=== PATIENT | male | born 1990 | race Caucasian/White ===

== ENCOUNTER 2020-03-02 08:47 | Emergency (ER) | payer MEDICAID ==
[~2020-03-02] VITALS: Ht 172.7 cm; Wt 68.2 kg
--- NOTE | 2020-03-02 08:54 | NUR ---
STATED LAST USED HEROIN AND METH 2 DAYS AGO.
[2020-03-02] MEDS ORDERED: ibuprofen tablet 400 MG TABLET PO ONE (09:20)
[2020-03-02] MEDS ORDERED: NALO4SPR NS (09:26)
[2020-03-02] MEDS ORDERED: IBUP-1984 PO (09:26)
[2020-03-02 09:27] VITALS: BP 123/75
== END 2020-03-02 09:36 | disposition home or self-care (01) ==
LOC: ER 08:47
DX: R25.2 Cramp and spasm (principal); F15.10 Other stimulant abuse, uncomplicated; F11.90 Opioid use, unspecified, uncomplicated; F17.200 Nicotine dependence, unspecified, uncomplicated; F12.90 Cannabis use, unspecified, uncomplicated; Z59.0 Homelessness; Z79.899 Other long term (current) drug therapy
CPT/HCPCS: 99283

== ENCOUNTER 2020-03-06 09:12 | Emergency (ER) | payer MEDICAID ==
[~2020-03-06] VITALS: Ht 172.7 cm; Wt 71.8 kg
[~2020-03-06 09:12] MED LIST: IBUP-1984 PO; NALO4SPR NS
[2020-03-06 09:26] VITALS: BP 128/81
== END 2020-03-06 09:58 | disposition home or self-care (01) ==
LOC: ER 09:12
DX: F11.90 Opioid use, unspecified, uncomplicated (principal); F17.200 Nicotine dependence, unspecified, uncomplicated; F12.90 Cannabis use, unspecified, uncomplicated; F15.90 Other stimulant use, unspecified, uncomplicated; Z98.890 Other specified postprocedural states
CPT/HCPCS: 99281

== ENCOUNTER 2020-04-16 09:43 | Emergency (ER) | payer MEDICAID ==
[~2020-04-16] VITALS: Ht 172.7 cm; Wt 68.2 kg
[~2020-04-16 09:43] MED LIST changes: -IBUP-1984 PO
[2020-04-16] MEDS ORDERED: normal saline 1000ml 1,000 ML IV ONE (09:50)
[2020-04-16 10:03] LABS: BASOPHILS % (AUTO) 0.3 % (0-1); EOSINOPHILS # (AUTO) 0.1 X10'3 (0-0.9); EOSINOPHILS % (AUTO) 0.7 % (0-6); HEMATOCRIT 40.5 % (42.0-52.0); HEMOGLOBIN 13.8 g/dl (14.0-17.9); LYMPHOCYTES # (AUTO) 0.9 X10'3 (1.1-4.8); LYMPHOCYTES % (AUTO) 10.3 % (21-51); MEAN CORPUSCULAR HEMOGLOBIN 30.2 PG (27.0-31.0); MEAN CORPUSCULAR VOLUME 88.8 FL (78-98); MEAN PLATELET VOLUME 6.5 FL (7.4-10.4); MONOCYTES # (AUTO) 0.6 X10'3 (0-0.9); MONOCYTES % (AUTO) 7.1 % (2-12); NEUTROPHILS # (AUTO) 7.1 X10'3 (1.8-7.7); NEUTROPHILS % (AUTO) 81.6 % (42-75); PLATELET COUNT 318 X10'3 (140-440); RED BLOOD COUNT 4.56 X10'6 (4.70-6.10); RED CELL DISTRIBUTION WIDTH 14.3 % (11.5-14.5); WHITE BLOOD COUNT 8.7 X10'3 (4.5-11.0)
[2020-04-16 10:25] LABS: ALANINE AMINOTRANSFERASE 61 U/L (12-78); ALBUMIN 3.7 G/DL (3.4-5.0); ALBUMIN/GLOBULIN RATIO 0.9 (1.1-1.5); ALKALINE PHOSPHATASE 66 IU/L (46-116); ANION GAP 11 (8-16); ASPARTATE AMINO TRANSFERASE 71 U/L (10-37); BILIRUBIN,TOTAL 0.4 MG/DL (0.1-1.0); BLOOD UREA NITROGEN 14 MG/DL (7-18); BUN/CREATININE RATIO 10.4 (5.4-32.0); CALCIUM 8.9 MG/DL (8.5-10.1); CHLORIDE 103 MMOL/L (99-107); CREATININE 1.35 MG/DL (0.60-1.10); ETHANOL < 0.010 GM/DL (0.0-0.010); GLUCOSE 89 MG/DL (70-104); SODIUM 140 MMOL/L (135-145); TOTAL CARBON DIOXIDE 25.9 MMOL/L (24-32); TOTAL PROTEIN 7.7 G/DL (6.4-8.2); eGFR 63 ML/MIN
[2020-04-16 10:26] LABS: POTASSIUM 4.1 MMOL/L (3.5-5.1)
--- NOTE | 2020-04-16 11:42 | NUR ---
PT LAYING SUPINE, RESPIRATIONS EVEN AND UNLABORED
--- NOTE | 2020-04-16 11:47 | NUR ---
UNABLE TO GET PT PASST MEDICA HISOTRY DUE TO PT CONDITION.
[2020-04-16 14:01] LABS: URINE AMPHETAMINE SCREEN POSITIVE (Neg); URINE BARBITUATE SCREEN NEGATIVE (Neg); URINE BENZODIAZEPINES SCREEN NEGATIVE (Neg); URINE CANNABINOID SCREEN NEGATIVE (Neg); URINE COCAINE SCREEN NEGATIVE (Neg); URINE METHADONE SCREEN NEGATIVE (Neg); URINE OPIATE SCREEN POSITIVE (Neg); URINE PHENCYCLIDINE SCREEN NEGATIVE (Neg)
--- NOTE | 2020-04-16 14:57 | NUR ---
Nursing Note: Pt transferred to ED overflow bed # 24. Pt ambulatory. Pt cooperative. He has a PIV in his R forearm. He requested water, juice, and food. Pt given apple sauce, orange juice, and a sandwich. Pt reports that he is hearing voices. Will continue to monitor.
[2020-04-16] MEDS ORDERED: nicotine 21mg patch - 24 hr TD ONE (15:35)
[2020-04-16] MEDS: ibuprofen tablet 400 MG TABLET PO PRN (15:38)
--- NOTE | 2020-04-16 15:39 | NUR ---
nicotine patch applied and given ibu for pain in feet
--- NOTE | 2020-04-16 16:14 | NUR ---
Nursing Note: Pt sitting up on the end his bed. No S&S of distress, RR even and unlabored, will continue to monitor.
--- NOTE | 2020-04-16 16:37 | NUR ---
Nursing Note: Pt reports he had been on Suboxone, but he missed his last appointment. He is unable to state the dosage of the Suboxone or the last date he took it. He said he used heroin instead. Pt is unable to fully answer questions. Will continue to monitor.
--- NOTE | 2020-04-16 17:51 | NUR ---
packet faxed to [facility]
--- NOTE | 2020-04-16 17:55 | NUR ---
Nursing Note: sales technician unable to obtain patient's temperature because he would not keep his mouth closed. No S&S of distress. Pt now laying on his back with his eyes closed, RR even and unlabored, will continue to monitor.
--- NOTE | 2020-04-16 18:30 | NUR ---
ASSSUMED CARE OF PATINE LYING ON HER LEFT SIDE IN BED ASLEEP . RESP EVEN AND UN LABORED . PT IS IN THE DIRECT LINE OF SIGHT OF NURSING STAFF AND WILL CONTINUED TO BE MONITORED AND ASSESSED
--- NOTE | 2020-04-16 18:46 | NUR ---
PLACED PT ON O2 SAT MONITOR AND BP TO ASSESS HEART RATE AND O2 SATS WHEN PATIENT SLEEP A PRECATIONARY , DAY SHIFT RN REPORTS THAT PATIENT DID HAVE A DECREASE INRESP TI 14 O2 SATS REMAINED ABOVE 95 % , HOWVER PT IS UNABLE TO REPORT HOW MUCH HERION HE USED EARLIER TODAY .
--- NOTE | 2020-04-16 18:52 | NUR ---
Note kang in EDM - 04/16/20 at 2341 by ANA [facility] AT BEDSIDE AWKEING PATIENT FOR EVALUATION . JANES PATEL AWOKE HER AND OUT THE HEAD OF BED UPRIGHT TO HAVE DINNER AND ALLOW YEVGENIY TO TALK WITH PATIENT . PT WAS COROPORATIVE IN CURRENT PLAN OF CARE
--- NOTE | 2020-04-16 19:00 | NUR ---
ASSESSED PATIENTS EXTERNAL MED HX FOR MED REC. PT HAS NO REPORTED EXTERNAL MED HX . ASKED PATIENT IF HE TAKES ANY ROUTINE MEDICATIONS. PT REPORTS HE HAS TAKEN SUBOXONE " I THINK 8MG THREE TIMES A DAY " THEN REPLIES " I DONT KNOW I CAN'T REMEMBER " MED REC COMPLETED WITH ONLY NARCAN REPORTED PATIENT IS UNCLEAR OF SUBOXONE DOSEAGE, WHENHE LAST TOOK IT , AND WHERE/ WHO PRESCRIBED HIM THE MEDICATION .
--- NOTE | 2020-04-16 19:30 | NUR ---
PT COMPLETED 65% OF HIS DINNER . PT REPORTED THAT HE WOULD LIKE TO GO BACK TO SLEEP . HOB ELEVATED AT 30 DEGREES AND O2 SAT MONITOR PLACED ON PT TO MONITOR HIS HEART RATE AND O2 SATS
--- NOTE | 2020-04-16 19:30 | NUR ---
ATTEMPTED TO REVIEW PATIENTS PAST MEDICAL HISTORY AND PATIENT ALSO WASUNABLE TO RECALL ANY PAST MEDICATION HX . PT STATES " I CANT REMEMBER" WILL REATTEMPT TO ASSESS WHEN PATIENT IS NOT SO DROWSEY.
--- NOTE | 2020-04-16 20:30 | NUR ---
PT SLEEPING ON HIS RIGHT SIDE, RESP EVEN AND UNLABORED O2 SATS AT 98 % ROOM AIR . WILL CONTINUE TO MONITOR AND REASSESS NEEDED
--- NOTE | 2020-04-16 21:30 | NUR ---
NO CHANGES TO PREVIOUS ASSESSMENT . PT SLEEPING PEACFULLY ON HIS RIGHT SIDE RESP EVEN AND UNLABORED WILL CONTINUE TO MONITOR AND REASSESS
--- NOTE | 2020-04-16 22:30 | NUR ---
PT SLEEPING ON HIS RIGHT SIDE . RESP EVEN AND UNLABORED O2 SATS AT 98 % ROOM AIR HEART RATE AT 64 AT THIS TIME . WILL CONTINUE TO MONITOR AND REASSESS NEEDED
--- NOTE | 2020-04-16 23:30 | NUR ---
NO CHANGES TO PREVIOUS ASSESSMENT . PT SLEEPING PEACFULLY O2 SATS AT 98 % hr at 67 AT THIS TIME
--- NOTE | 2020-04-17 01:30 | NUR ---
PT SLEEPING PEACFULLY SUPINE IN BED . RESP EVEN AND UNLABORED WILL CONTINUE TO MONITOR AND REASSESS NEEDED .
--- NOTE | 2020-04-17 02:03 | NUR ---
PT SLEEPING SUPINE IN BED . RESP EVEN AND UNLABORD .PT ON O2 SAT MONITOR SATS AT 98 % ROOM AIR RESP AT 16 HR AT 62 WILL CONTINUE TO MONITOR AND REASSESS NEEDED .
--- NOTE | 2020-04-17 03:27 | NUR ---
PT SLEEPING SUPINE IN BED . RESP EVEN AND UNLABORD .WILL CONTINUE TO MONITOR AND REASSESS NEEDED .
--- NOTE | 2020-04-17 03:43 | NUR ---
MED REC COMPLETED AND FAXED TO PHARMACY
[2020-04-17] MEDS ORDERED: NALO4SPR NS (03:57)
--- NOTE | 2020-04-17 04:00 | NUR ---
PT SLEEPING SUPINE IN BED . RESP EVEN AND UNLABORD .PT ON O2 SAT MONITOR SATS AT 98 % ROOM AIR RESP AT 16 HR AT 61 WILL CONTINUE TO MONITOR AND REASSESS NEEDED
--- NOTE | 2020-04-17 04:28 | NUR ---
PT TURNED TO HIS RIGHT SIDE .SELF REPOSITIONED
--- NOTE | 2020-04-17 05:10 | NUR ---
PT SLEEPING SUPINE IN BED . RESP EVEN AND UNLABORD .PT ON O2 SAT MONITOR SATS AT 98% ROOM AIR HR AT 68 RESP RATE AT 16 WILL CONTINUE TO MONITOR AND REASSESS NEEDED .
--- NOTE | 2020-04-17 05:57 | NUR ---
PT SLEEPING ON HIS RIGHT SIDE IN BED . RESP EVEN AND UNLABORD .PT ON O2 SAT MONITOR SATS AT 98% ROOM AIR HR AT 68 RESP RATE AT 16 WILL CONTINUE TO MONITOR AND REASSESS NEEDED .
--- NOTE | 2020-04-17 07:30 | NUR ---
RN awoke pt. for urine sample for U/A. Pt. complied and urine sent to lab. Pt. went back to sleep.
[2020-04-17 07:43] LABS: CLARITY,URINE CLOUDY (Clear); COLOR,URINE YELLOW (Yellow); GLUCOSE, URINE NEGATIVE (Neg); KETONES,URINE NEGATIVE (Neg); LEUKOCYTE ESTERASE ,URINE MODERATE (Neg); NITRITES, URINE NEGATIVE (Neg); OCCULT BLOOD,URINE TRACE-INTACT (Neg); PROTEIN,URINE TRACE mg/dl (Neg); UROBILINOGEN,URINE 0.2 E.U/dL (0.2-1.0)
[2020-04-17 07:46] LABS: UA COLLECTION TYPE CLN CATCH MIDSTREAM
[2020-04-17 07:50] LABS: BACTERIA,URINE FEW /HPF (Neg); RBC,URINE 0-2 /HPF (0-2); SQUAMOUS EPITHELIAL CELL,UR NONE SEEN /LPF (FEW); WBC,URINE 50-100 /HPF (0-4)
[2020-04-17] MEDS: ibuprofen tablet 400 MG TABLET PO PRN ×2 (08:49→13:31)
--- NOTE | 2020-04-17 09:36 | NUR ---
Pt was seen/assessed by [facility] iqra Hays and placed on 5150.
[2020-04-17] MEDS ORDERED: ciprofloxacin 250mg tablet PO ONE (10:00)
--- NOTE | 2020-04-17 10:00 | NUR ---
Pt. c/o generalized body ache 10/10 so much so that he hurts to much to walk to the bathroom. Pt. given a urinal. RN received additional PRN pain medication Tylenol 650mg.
[2020-04-17] MEDS ORDERED: acetaminophen 325mg tablet PO PRN (10:05)
--- NOTE | 2020-04-17 10:30 | NUR ---
Pt. c/o of pain on urination. pt.'s U/A + for leukocyte esterase and moderate WBCs. Provider notified, Cipro 250mg ordered and pt. received medication.
--- NOTE | 2020-04-17 12:00 | NUR ---
Pt. asleep in bed laying on right side. R&R of respirations are normal. Pt. in no apparent distress.
--- NOTE | 2020-04-17 12:18 | NUR ---
RN spoke with Lucita from [facility] to discuss if pt. is a good fit for them. RN informed that pt. would be discussed with admitting doctor at [facility].
--- NOTE | 2020-04-17 13:48 | NUR ---
RN received phone call from Amarilys at [facility] and informed that Pt. accepted to [facility] by Dr. Jaquez and will coordinate [facility] pickup of pt. for 14:30.
--- NOTE | 2020-04-17 14:19 | NUR ---
Pt. asleep in bed laying on right side. Normal R&R of respirations noted. Pt. in no apparent distress.
--- NOTE | 2020-04-17 15:00 | NUR ---
Pt. transfered to [facility]. Pt. picked up by [facility] medical van driver. Pt. left with all belongings. Pt. escorted to transport vehicle with security operations center analyst. Pt. is alert & oriented x3, but not to time. Pt. denies SI/HI, A/V hallucinations, but believes there are aligators attacking his feet. Pt. ambulated off of unit.
[2020-04-17 15:04] VITALS: BP 92/56
[2020-04-17] MEDS ORDERED: ciprofloxacin 250mg tablet PO SCH (20:00)
[2020-04-17] MEDS ORDERED: lactobacillus rhamnosus 10,000 MMU CELLS/CAPSULE PO SCH (20:00)
== END 2020-04-17 15:00 ==
LOC: ER 09:43
DX: F29 Unspecified psychosis not due to a substance or known physiological condition (principal); F12.90 Cannabis use, unspecified, uncomplicated; F15.90 Other stimulant use, unspecified, uncomplicated; F11.90 Opioid use, unspecified, uncomplicated
CPT/HCPCS: 36415; 80053; 80305; 80320; 81001; 84443; 85025; 99285; J7030; 99284

== ENCOUNTER 2020-08-26 12:06 | Emergency (ER) | payer MEDICAID ==
[~2020-08-26] VITALS: Ht 172.7 cm; Wt 60.0 kg
--- NOTE | 2020-08-26 12:33 | NUR ---
[employer] officer at bedside talking with pt. Addendum: 08/26/20 at 1238 by JARRET Officer Kirit has drugs removed from patient rectum.
[2020-08-26] MEDS ORDERED: normal saline 1000ML IV soln IVB ONE (12:40)
[2020-08-26 13:17] LABS: BASOPHILS # (AUTO) 0.1 X10'3 (0-0.2); BASOPHILS % (AUTO) 0.6 % (0-1); EOSINOPHILS # (AUTO) 0.1 X10'3 (0-0.9); EOSINOPHILS % (AUTO) 0.8 % (0-6); HEMATOCRIT 39.4 % (42.0-52.0); HEMOGLOBIN 13.2 g/dl (14.0-17.9); LYMPHOCYTES # (AUTO) 1.7 X10'3 (1.1-4.8); LYMPHOCYTES % (AUTO) 13.1 % (21-51); MEAN CORPUSCULAR HGB CONC 33.5 g/dL (33.0-36.5); MEAN CORPUSCULAR VOLUME 86.6 FL (78-98); MEAN PLATELET VOLUME 6.7 FL (7.4-10.4); MONOCYTES # (AUTO) 1.5 X10'3 (0-0.9); MONOCYTES % (AUTO) 11.9 % (2-12); NEUTROPHILS # (AUTO) 9.6 X10'3 (1.8-7.7); NEUTROPHILS % (AUTO) 73.6 % (42-75); PLATELET COUNT 257 X10'3 (140-440); RED BLOOD COUNT 4.54 X10'6 (4.70-6.10); RED CELL DISTRIBUTION WIDTH 13.1 % (11.5-14.5)
[2020-08-26 13:27] LABS: ALANINE AMINOTRANSFERASE 102 U/L (12-78); ALBUMIN 4.2 G/DL (3.4-5.0); ALBUMIN/GLOBULIN RATIO 1.1 (1.1-1.5); ALKALINE PHOSPHATASE 58 IU/L (46-116); ANION GAP 9 (8-16); ASPARTATE AMINO TRANSFERASE 79 U/L (10-37); BILIRUBIN,TOTAL 0.6 MG/DL (0.1-1.0); BLOOD UREA NITROGEN 23 MG/DL (7-18); BUN/CREATININE RATIO 27.4 (5.4-32.0); CALCIUM 9.2 MG/DL (8.5-10.1); CHLORIDE 104 MMOL/L (99-107); CREATININE 0.84 MG/DL (0.60-1.10); GLUCOSE 91 MG/DL (70-104); POTASSIUM 3.6 MMOL/L (3.5-5.1); SODIUM 141 MMOL/L (135-145); TOTAL CARBON DIOXIDE 28.2 MMOL/L (24-32); TOTAL PROTEIN 8.1 G/DL (6.4-8.2); eGFR > 90 ML/MIN
[2020-08-26 13:28] LABS: ETHANOL < 0.010 GM/DL (0.0-0.010)
--- NOTE | 2020-08-26 14:40 | NUR ---
Pt eating sandwhich and drinking juice in [facility]; VSS.
[2020-08-26] MEDS ORDERED: NO HOME MEDS (17:57)
[2020-08-26] MEDS ORDERED: nicotine 14mg patch - 24hr TD ONE (18:35)
[2020-08-26] MEDS ORDERED: VENL150C2 PO ×2 (19:04→19:12)
[2020-08-26] MEDS ORDERED: GABA-530 PO ×2 (19:04→19:12)
[2020-08-26] MEDS ORDERED: CLON0.1T PO (19:04)
[2020-08-26] MEDS ORDERED: MIRT-116 PO ×2 (19:04→19:12)
[2020-08-26] MEDS ORDERED: OLAN2.5T3 PO ×2 (19:04→19:12)
[2020-08-26] MEDS ORDERED: HYDR50TA65 PO ×2 (19:05→19:12)
[2020-08-26] MEDS ORDERED: SERT100T PO (19:12)
[2020-08-26] MEDS ORDERED: VENL25TA48 PO (19:12)
[2020-08-26] MEDS ORDERED: ALPR1TAB2 PO (19:12)
[2020-08-26 19:42] LABS: CLARITY,URINE CLEAR (Clear); COLOR,URINE YELLOW (Yellow); GLUCOSE, URINE NEGATIVE (Neg); KETONES,URINE 15 mg/dl (Neg); LEUKOCYTE ESTERASE ,URINE NEGATIVE (Neg); NITRITES, URINE NEGATIVE (Neg); OCCULT BLOOD,URINE NEGATIVE (Neg); PROTEIN,URINE NEGATIVE (Neg); UROBILINOGEN,URINE 0.2 E.U/dL (0.2-1.0)
[2020-08-26 19:46] LABS: UA COLLECTION TYPE CLN CATCH MIDSTREAM
--- NOTE | 2020-08-26 20:00 | NUR ---
MD AWARE OF PT STATING WHAT MEDS HE TAKES AT HOME AND POLYPHARMACY. NO NEW ORDERS TO CONTINUE STATED MED REC
--- NOTE | 2020-08-26 20:50 | NUR ---
pt provided turkey sandwich and juice
--- NOTE | 2020-08-26 22:31 | NUR ---
EYES CLOSED RESPIRATIONS EVEN IN BED
[2020-08-26 22:50] LABS: URINE AMPHETAMINE SCREEN POSITIVE (Neg); URINE BARBITUATE SCREEN NEGATIVE (Neg); URINE BENZODIAZEPINES SCREEN NEGATIVE (Neg); URINE CANNABINOID SCREEN POSITIVE (Neg); URINE COCAINE SCREEN NEGATIVE (Neg); URINE METHADONE SCREEN NEGATIVE (Neg); URINE OPIATE SCREEN POSITIVE (Neg); URINE PHENCYCLIDINE SCREEN NEGATIVE (Neg)
--- NOTE | 2020-08-27 01:53 | NUR ---
PT SLEEPING. NO DISTRESS NOTED. WILL CONTINUE TO MONITOR.
--- NOTE | 2020-08-27 03:55 | NUR ---
PT SLEEPING. NO DISTRESS NOTED. WILL CONTINUE TO MONITOR.
--- NOTE | 2020-08-27 10:01 | NUR ---
Per EDILMA Renee, pt to be released from hold following his psychosocial assessment.
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
--- NOTE | 2020-08-27 15:20 | NUR ---
Discussed pt's status w/ ED [facility] [place]. Pt was initially up for dc, but that is being held at this time due to change in pt thought processes. New order for Xanaax, Gabapentin, Zoloft and nicotine patch received.
[2020-08-27] MEDS ORDERED: gabapentin 100mg capsule PO ONE (15:30)
[2020-08-27] MEDS ORDERED: sertraline 50mg tablet PO ONE (15:30)
[2020-08-27] MEDS ORDERED: ALPRAZolam 0.5mg tablet PO ONE (15:30)
[2020-08-27] MEDS ORDERED: nicotine 14mg patch - 24hr TD ONE (15:30)
[2020-08-27 17:29] VITALS: BP 115/56
== END 2020-08-27 17:42 | disposition home or self-care (01) ==
LOC: ER 12:06
DX: T40.412A Poisoning by fentanyl or fentanyl analogs, intentional self-harm, initial encounter (principal); R45.851 Suicidal ideations; F10.10 Alcohol abuse, uncomplicated; F12.90 Cannabis use, unspecified, uncomplicated; F15.90 Other stimulant use, unspecified, uncomplicated; F11.90 Opioid use, unspecified, uncomplicated; F19.90 Other psychoactive substance use, unspecified, uncomplicated; Z79.899 Other long term (current) drug therapy; Y92.89 Other specified places as the place of occurrence of the external cause; Y90.0 Blood alcohol level of less than 20 mg/100 ml
CPT/HCPCS: 36415; 71045; 80053; 80305; 80320; 81003; 82948; 85025; 93005; 96360; 99285; J7030

== ENCOUNTER 2020-11-11 22:10 | Emergency (ER) | payer MEDICAID ==
[~2020-11-11] VITALS: Ht 172.7 cm; Wt 68.2 kg
[~2020-11-11 22:10] MED LIST changes: +ALPR1TAB2 PO; +GABA-530 PO; +HYDR50TA65 PO; +MIRT-116 PO; -NALO4SPR NS; +OLAN2.5T3 PO; +SERT100T PO; +VENL150C2 PO; +VENL25TA48 PO
[2020-11-11 23:15] VITALS: BP 130/69
[2020-11-11 23:38] LABS: CLARITY,URINE CLEAR (Clear); COLOR,URINE YELLOW (Yellow); GLUCOSE, URINE NEGATIVE (Neg); KETONES,URINE NEGATIVE (Neg); LEUKOCYTE ESTERASE ,URINE NEGATIVE (Neg); NITRITES, URINE NEGATIVE (Neg); OCCULT BLOOD,URINE NEGATIVE (Neg); PH,URINE 5.5 (4.8-8.0); PROTEIN,URINE NEGATIVE (Neg); UROBILINOGEN,URINE 0.2 E.U/dL (0.2-1.0)
[2020-11-11 23:40] LABS: UA COLLECTION TYPE VOIDED
[2020-11-11 23:53] LABS: URINE AMPHETAMINE SCREEN POSITIVE (Neg); URINE BARBITUATE SCREEN NEGATIVE (Neg); URINE BENZODIAZEPINES SCREEN NEGATIVE (Neg); URINE CANNABINOID SCREEN NEGATIVE (Neg); URINE COCAINE SCREEN NEGATIVE (Neg); URINE METHADONE SCREEN NEGATIVE (Neg); URINE OPIATE SCREEN POSITIVE (Neg); URINE PHENCYCLIDINE SCREEN NEGATIVE (Neg)
== END 2020-11-12 00:55 | disposition home or self-care (01) ==
LOC: ER 22:10
DX: T40.1X1A Poisoning by heroin, accidental (unintentional), initial encounter (principal); F19.10 Other psychoactive substance abuse, uncomplicated; F12.90 Cannabis use, unspecified, uncomplicated; F15.90 Other stimulant use, unspecified, uncomplicated; F11.90 Opioid use, unspecified, uncomplicated; Z72.89 Other problems related to lifestyle; Z79.899 Other long term (current) drug therapy; Y92.89 Other specified places as the place of occurrence of the external cause
CPT/HCPCS: 36415; 80305; 80320; 81003; 93005; 99284

== ENCOUNTER 2021-01-23 17:07 | Emergency (ER) | payer MEDICAID ==
[~2021-01-23] VITALS: Ht 172.7 cm; Wt 71.8 kg
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
[2021-01-23] MEDS ORDERED: LIDOcaine 1% W/epiNEPHrine 1:100,000 20ml vial SQ ONE ×2 (17:55→19:00)
[2021-01-23] MEDS ORDERED: morphine 4 MG/ML inj SYRINge IV ONE (18:20)
[2021-01-23] MEDS ORDERED: ondansetron/PF 4mg/2ml inj IV ONE (18:20)
--- NOTE | 2021-01-23 18:35 | NUR ---
UNABLE TO COLLECT BP, PT STATES HE'S ARMS ARE IN TOO MUCH PAIN.
[2021-01-23] MEDS ORDERED: TETanus/Pertussis (Acell)/Diphther VAC/PF (Tdap-Adult) 0.5ml syringe IMVAC ONE (18:50)
--- NOTE | 2021-01-23 18:52 | NUR ---
covid swab sent to lab
--- NOTE | 2021-01-23 19:22 | NUR ---
report called to Lisset ROWLAND at [facility] for transfer.
[2021-01-23 20:33] VITALS: BP 100/49
[2021-01-24] MEDS ORDERED: ceFAZolin/D5W- 1GM premix 50 ML IV ONE
== END 2021-01-23 19:30 | disposition short-term general hospital (02) ==
LOC: ER 17:07
DX: S42.411A Displaced simple supracondylar fracture without intercondylar fracture of right humerus, initial encounter for closed fracture (principal); Z20.822 Contact with and (suspected) exposure to COVID-19; S81.811A Laceration without foreign body, right lower leg, initial encounter; S51.012A Laceration without foreign body of left elbow, initial encounter; F12.90 Cannabis use, unspecified, uncomplicated; F15.90 Other stimulant use, unspecified, uncomplicated; F11.90 Opioid use, unspecified, uncomplicated; Z79.899 Other long term (current) drug therapy; W54.0XXA Bitten by dog, initial encounter; Y93.89 Activity, other specified; Y92.89 Other specified places as the place of occurrence of the external cause; Y99.8 Other external cause status
CPT/HCPCS: 12004; 73080; 73090; 73590; 87635; 90471; 90715; 96365; 96375; 99285; C9803; J0690; J2270; J2405; 99284

== ENCOUNTER 2021-02-17 09:00 | Emergency (ER) | payer MEDICAID ==
[~2021-02-17] VITALS: Ht 172.7 cm; Wt 71.8 kg
[2021-02-17] MEDS ORDERED: CefTRIAXone 2gm/D5W 50ml BAG 50 ML IV ONE (09:15)
[2021-02-17] MEDS ORDERED: normal saline 1000ML IV soln IV ONE (09:15)
[2021-02-17] MEDS ORDERED: vancomycin/NS 1 GM ADD-VANTAGE 250 ML IV ONE (09:15)
[2021-02-17 10:14] LABS: BASOPHILS # (AUTO) 0.1 X10'3 (0-0.2); BASOPHILS % (AUTO) 0.7 % (0-1); EOSINOPHILS # (AUTO) 0.2 X10'3 (0-0.9); EOSINOPHILS % (AUTO) 2.9 % (0-6); HEMATOCRIT 34.3 % (42.0-52.0); HEMOGLOBIN 11.2 g/dl (14.0-17.9); LYMPHOCYTES # (AUTO) 1.7 X10'3 (1.1-4.8); LYMPHOCYTES % (AUTO) 21.5 % (21-51); MEAN CORPUSCULAR HEMOGLOBIN 26.7 PG (27.0-31.0); MEAN CORPUSCULAR HGB CONC 32.5 g/dL (33.0-36.5); MEAN CORPUSCULAR VOLUME 82.1 FL (78-98); MEAN PLATELET VOLUME 6.4 FL (7.4-10.4); MONOCYTES # (AUTO) 0.8 X10'3 (0-0.9); MONOCYTES % (AUTO) 10.4 % (2-12); NEUTROPHILS # (AUTO) 5.1 X10'3 (1.8-7.7); NEUTROPHILS % (AUTO) 64.5 % (42-75); PLATELET COUNT 517 X10'3 (140-440); RED BLOOD COUNT 4.18 X10'6 (4.70-6.10); RED CELL DISTRIBUTION WIDTH 14.5 % (11.5-14.5); WHITE BLOOD COUNT 7.9 X10'3 (4.5-11.0)
[2021-02-17] MEDS ORDERED: iohexol 300mg/ml 100ml inj. ONE (10:41)
[2021-02-17 10:48] LABS: ALANINE AMINOTRANSFERASE 44 U/L (12-78); ALBUMIN 2.6 G/DL (3.4-5.0); ALBUMIN/GLOBULIN RATIO 0.5 (1.1-1.5); ALKALINE PHOSPHATASE 103 IU/L (46-116); ANION GAP 6 (8-16); ASPARTATE AMINO TRANSFERASE 32 U/L (10-37); BILIRUBIN,TOTAL 0.2 MG/DL (0.1-1.0); BLOOD UREA NITROGEN 9 MG/DL (7-18); BUN/CREATININE RATIO 12.2 (5.4-32.0); CALCIUM 8.3 MG/DL (8.5-10.1); CHLORIDE 104 MMOL/L (99-107); CREATININE 0.74 MG/DL (0.60-1.10); GLUCOSE 87 MG/DL (70-104); MAGNESIUM 2.1 MG/DL (1.5-2.4); POTASSIUM 3.9 MMOL/L (3.5-5.1); SODIUM 137 MMOL/L (135-145); TOTAL CARBON DIOXIDE 27.4 MMOL/L (24-32); TOTAL PROTEIN 8.2 G/DL (6.4-8.2); eGFR > 90 ML/MIN
[2021-02-17 10:54] LABS: ETHANOL < 0.010 GM/DL (0.0-0.010)
[2021-02-17 11:39] LABS: CLARITY,URINE CLEAR (Clear); COLOR,URINE YELLOW (Yellow); GLUCOSE, URINE NEGATIVE (Neg); KETONES,URINE NEGATIVE (Neg); LEUKOCYTE ESTERASE ,URINE NEGATIVE (Neg); NITRITES, URINE NEGATIVE (Neg); OCCULT BLOOD,URINE TRACE-INTACT (Neg); PROTEIN,URINE NEGATIVE (Neg); UA COLLECTION TYPE NON-SPECIFIED
[2021-02-17 11:46] LABS: AMORPHOUS URATES 1+; BACTERIA,URINE NONE SEEN /HPF (Neg); CAL OXALATE CRYSTALS 1+ /HPF (NEGATIVE); MUCUS STRANDS MODERATE /LPF (Neg); RBC,URINE 0-2 /HPF (0-2); SQUAMOUS EPITHELIAL CELL,UR NONE SEEN /LPF (FEW); WBC,URINE 0-4 /HPF (0-4)
[2021-02-17 11:47] LABS: URINE AMPHETAMINE SCREEN POSITIVE (Neg); URINE BARBITUATE SCREEN NEGATIVE (Neg); URINE BENZODIAZEPINES SCREEN NEGATIVE (Neg); URINE CANNABINOID SCREEN NEGATIVE (Neg); URINE COCAINE SCREEN NEGATIVE (Neg); URINE METHADONE SCREEN NEGATIVE (Neg); URINE OPIATE SCREEN POSITIVE (Neg); URINE PHENCYCLIDINE SCREEN NEGATIVE (Neg)
[2021-02-17 12:21] LABS: C-REACTIVE PROTEIN 3.12 MG/DL (0.0-0.5)
[2021-02-17] MEDS ORDERED: ketorolac trometh. 30mg/ml inj. IV ONE (15:15)
[2021-02-17 18:56] VITALS: BP 168/74
== END 2021-02-17 20:45 | disposition short-term general hospital (02) ==
LOC: ER 09:00
DX: L03.113 Cellulitis of right upper limb (principal); F15.10 Other stimulant abuse, uncomplicated; F12.10 Cannabis abuse, uncomplicated; F14.10 Cocaine abuse, uncomplicated; Z56.0 Unemployment, unspecified; Z79.899 Other long term (current) drug therapy; Z20.822 Contact with and (suspected) exposure to COVID-19
CPT/HCPCS: 36415; 71045; 73201; 80053; 80305; 80320; 81001; 83605; 83735; 84145; 85025; 85651; 86140; 87040; 87070; 87077; 87186; 87635; 93005; 96365; 96367; 96375; 99285; C9803; J0696; J1885; J3370; J7030; Q9967

== ENCOUNTER 2021-02-27 10:23 | Emergency (ER) | payer MEDICAID ==
[~2021-02-27] VITALS: Ht 172.7 cm; Wt 71.8 kg
[2021-02-27] MEDS ORDERED: linezolid 600mg tablet PO ONE (10:25)
[2021-02-27 10:26] VITALS: BP 113/88
[2021-02-27] MEDS ORDERED: LINE600T11 PO (10:29)
== END 2021-02-27 11:13 | disposition home or self-care (01) ==
LOC: ER 10:24
DX: S42.411D Displaced simple supracondylar fracture without intercondylar fracture of right humerus, subsequent encounter for fracture with routine healing (principal); F12.90 Cannabis use, unspecified, uncomplicated; F15.90 Other stimulant use, unspecified, uncomplicated; F11.90 Opioid use, unspecified, uncomplicated; F19.90 Other psychoactive substance use, unspecified, uncomplicated; Z72.89 Other problems related to lifestyle; Z79.899 Other long term (current) drug therapy; X58.XXXD Exposure to other specified factors, subsequent encounter
CPT/HCPCS: 99283

== ENCOUNTER 2021-04-04 12:43 | Inpatient (IN) | payer OTHER ==
[2021-04-04] VITALS (17 sets, daily range): BP systolic 94–159; BP diastolic 54–99
[~2021-04-04] VITALS: Ht 172.7 cm; Wt 73.5 kg
[~2021-04-04 12:43] MED LIST changes: +cefazolin/dext.iso 2gm/100ml IV ONE; +famotidine 20mg tablet PO ONE; +ringers solution, lacted 1,000 ML IV SCH; +vancomycin 1,500 MG in NS 300ml IV soln IV ONE
[2021-04-04] MEDS ORDERED: gabapentin 300mg capsule PO PRN (14:25)
[2021-04-04] MEDS ORDERED: vancomycin 1,000mg inj ONE (17:59)
[2021-04-04] MEDS ORDERED: tobramycin sulfate 1.2gm vial TP ONE (18:01)
[2021-04-04] MEDS ORDERED: sevoflurane 250ml liquid IH ONE (19:18)
[2021-04-04] MEDS ORDERED: midazolam 1 mg/ML 2ml injection ONE (19:19)
[2021-04-04] MEDS ORDERED: fentaNYL/PF 50MCG/1 ML 2ML syringe ONE (19:19)
[2021-04-04] MEDS ORDERED: propofol inj 20 ML IV ONE (19:19)
[2021-04-04] MEDS ORDERED: acetaminophen 325mg tablet PO PRN (20:00)
[2021-04-04] MEDS ORDERED: bisacodyl 10mg suppository rectal RC PRN (20:00)
[2021-04-04] MEDS ORDERED: HYDROmorphone inj. 0.5 MG/0.5 ML DISP.SYRIN IV PRN (20:00)
[2021-04-04] MEDS: acetaminophen 325mg tablet PO SCH (20:00)
[2021-04-04] MEDS ORDERED: diphenhydrAMINE 25mg capsule PO PRN ×2 (20:00)
[2021-04-04] MEDS ORDERED: ondansetron/PF 4mg/2ml inj IV PRN ×2 (20:00→20:25)
[2021-04-04] MEDS ORDERED: magnesium hydroxide 30ml (MOM) UD suspension PO PRN (20:00)
[2021-04-04] MEDS ORDERED: vancomycin/NS 1 GM ADD-VANTAGE 250 ML IV SCH (20:00)
[2021-04-04] MEDS ORDERED: oxyCODONE IR 5mg (immed. release) tablet PO PRN (20:00)
--- NOTE | 2021-04-04 20:14 | NUR ---
Received from OR via , accompanied by Anesthesiologist DR BARTHOLOMEW and report given by Anesthesiolgist. PT PRESENT WITH PIV 20G LEFT HAND, PT DRESSING ON RIGHT ARM DRY AND INTACT. VSS. Addendum: 04/04/21 at 2023 by Sharda Carcamo RN, RN Amended: Links added.
[2021-04-04] MEDS ORDERED: meperidine/PF 25mg/ml syringe IV PRN ×2 (20:25)
[2021-04-04] MEDS ORDERED: ringers solution, lacted 1,000 ML IV SCH (20:25)
[2021-04-04] MEDS ORDERED: morphine 2 MG/ML inj. syringe IV PRN (20:25)
[2021-04-04] MEDS ORDERED: morphine 4 MG/ML inj SYRINge IV PRN (20:25)
[2021-04-04] MEDS ORDERED: proCHLORperazine 10 MG/2 ml inj IV PRN (20:25)
[2021-04-04] MEDS: meperidine/PF 25mg/ml syringe IV PRN ×2 (20:39→21:00)
[2021-04-04] MEDS ORDERED: gabapentin 300mg capsule PO SCH (21:00)
[2021-04-04] MEDS: sennosides 8.6mg tablet PO SCH (21:00)
--- NOTE | 2021-04-04 21:14 | NUR ---
REPORT GIVEN TO JERSON ROWLAND ON ORTHO, PT TO ROOM 4023B WITH DRILLING ENGINEER. Addendum: 04/04/21 at 2130 by Sharda Carcamo RN, RN Amended: Links added.
[2021-04-04] MEDS: hydrOXYzine 25 MG tablet PO SCH (23:22)
[2021-04-04] MEDS: gabapentin 300mg capsule PO SCH (23:23)
[2021-04-04] MEDS: mirtazapine 15mg tablet PO SCH (23:23)
[2021-04-04] MEDS: oxyCODONE IR 5mg (immed. release) tablet PO PRN (23:29)
[2021-04-04] MEDS: potassium cl 20mEq in 1/2 NS 1,000 ML IV SCH (23:40)
[2021-04-05] VITALS (9 sets, daily range): BP systolic 94–114; BP diastolic 45–61
[2021-04-05] MEDS: ceFAZolin/D5W- 1GM premix 50 ML IV SCH ×2 (01:44→09:20)
[2021-04-05] MEDS: oxyCODONE IR 5mg (immed. release) tablet PO PRN ×2 (03:55→20:47)
[2021-04-05] MEDS: acetaminophen 325mg tablet PO SCH ×4 (03:57→20:00)
[2021-04-05] MEDS: potassium cl 20mEq in 1/2 NS 1,000 ML IV SCH ×3 (04:00→21:11)
[2021-04-05] MEDS: HYDROmorphone 1 mg/ml syringe IV PRN ×2 (06:38→22:32)
[2021-04-05 07:20] LABS: BASOPHILS % (AUTO) 0.6 % (0-1); EOSINOPHILS # (AUTO) 0.2 X10'3 (0-0.9); EOSINOPHILS % (AUTO) 2.6 % (0-6); HEMATOCRIT 35.6 % (42.0-52.0); HEMOGLOBIN 11.6 g/dl (14.0-17.9); LYMPHOCYTES # (AUTO) 1.9 X10'3 (1.1-4.8); LYMPHOCYTES % (AUTO) 26.4 % (21-51); MEAN CORPUSCULAR HEMOGLOBIN 26.1 PG (27.0-31.0); MEAN CORPUSCULAR HGB CONC 32.7 g/dL (33.0-36.5); MEAN CORPUSCULAR VOLUME 79.8 FL (78-98); MEAN PLATELET VOLUME 6.5 FL (7.4-10.4); MONOCYTES # (AUTO) 0.6 X10'3 (0-0.9); MONOCYTES % (AUTO) 8.3 % (2-12); NEUTROPHILS # (AUTO) 4.4 X10'3 (1.8-7.7); NEUTROPHILS % (AUTO) 62.1 % (42-75); PLATELET COUNT 234 X10'3 (140-440); RED BLOOD COUNT 4.46 X10'6 (4.70-6.10); RED CELL DISTRIBUTION WIDTH 14.9 % (11.5-14.5)
[2021-04-05] MEDS: ALPRAZolam 0.5mg tablet PO SCH (07:28)
[2021-04-05] MEDS: sertraline 50mg tablet PO SCH (07:28)
[2021-04-05] MEDS: hydrOXYzine 25 MG tablet PO SCH ×2 (07:28→20:46)
[2021-04-05] MEDS: venlafaxine 25mg tablet PO SCH (07:29)
[2021-04-05] MEDS: gabapentin 300mg capsule PO SCH ×3 (07:33→20:46)
[2021-04-05] MEDS: venlafaxine XR 75mg capsule (Q24H) PO SCH (07:33)
[2021-04-05] MEDS: olanzapine 10mg tablet PO SCH (07:33)
[2021-04-05] MEDS ORDERED: vancomycin/NS 1 GM ADD-VANTAGE 250 ML IV SCH (08:00)
--- NOTE | 2021-04-05 15:58 | NUR ---
Noted pt admit for R elbow surgery by orthopedic surgeon. Pt sleeping unable to wake w/ guard from group home present during RD visit. Written high protein ed w/ RD contact information left at bedside. RD notified guard of education contents. Addendum: 04/05/21 at [address] Amended: Links added.
--- NOTE | 2021-04-05 18:00 | NUR ---
Patient in room ORTHO 4023. I have received report from Cirilo ROWLAND and had the opportunity to ask questions and assume patient care.
[2021-04-05] MEDS: sennosides 8.6mg tablet PO SCH (20:45)
[2021-04-05] MEDS: mirtazapine 15mg tablet PO SCH (20:46)
[2021-04-05] MEDS: celeCOXIB 100mg capsule PO SCH (20:47)
[2021-04-06] MEDS: oxyCODONE IR 5mg (immed. release) tablet PO PRN ×4 (02:06→19:09)
[2021-04-06] MEDS: acetaminophen 325mg tablet PO SCH ×3 (02:06→13:39)
[2021-04-06] MEDS: potassium cl 20mEq in 1/2 NS 1,000 ML IV SCH (04:00)
[2021-04-06] MEDS: HYDROmorphone 1 mg/ml syringe IV PRN (04:08)
--- NOTE | 2021-04-06 04:30 | NUR ---
he has 3 pillows under the right elbow to elevate it above the heart and i placed a powder pack under the elbow and on top of elbow to aid with decreasing the swelling to the arm.
--- NOTE | 2021-04-06 06:15 | NUR ---
Problems reprioritized. Patient report given, questions answered & plan of care reviewed with Cirilo ROWLAND.
[2021-04-06 06:28] VITALS: BP 117/59
[2021-04-06] MEDS: gabapentin 300mg capsule PO SCH ×2 (07:22→13:39)
[2021-04-06] MEDS: venlafaxine 25mg tablet PO SCH (07:22)
[2021-04-06] MEDS: ALPRAZolam 0.5mg tablet PO SCH (07:23)
[2021-04-06] MEDS: venlafaxine XR 75mg capsule (Q24H) PO SCH (07:23)
[2021-04-06] MEDS: olanzapine 10mg tablet PO SCH (07:23)
[2021-04-06] MEDS: sertraline 50mg tablet PO SCH (07:23)
[2021-04-06] MEDS: celeCOXIB 100mg capsule PO SCH (07:23)
[2021-04-06] MEDS: hydrOXYzine 25 MG tablet PO SCH (08:25)
[2021-04-06 08:34] LABS: BASOPHILS % (AUTO) 0.4 % (0-1); EOSINOPHILS # (AUTO) 0.2 X10'3 (0-0.9); EOSINOPHILS % (AUTO) 3.4 % (0-6); HEMATOCRIT 34.9 % (42.0-52.0); HEMOGLOBIN 11.2 g/dl (14.0-17.9); LYMPHOCYTES # (AUTO) 1.8 X10'3 (1.1-4.8); LYMPHOCYTES % (AUTO) 31.3 % (21-51); MEAN CORPUSCULAR HEMOGLOBIN 25.7 PG (27.0-31.0); MEAN CORPUSCULAR HGB CONC 32.2 g/dL (33.0-36.5); MEAN CORPUSCULAR VOLUME 79.8 FL (78-98); MEAN PLATELET VOLUME 6.5 FL (7.4-10.4); MONOCYTES # (AUTO) 0.6 X10'3 (0-0.9); MONOCYTES % (AUTO) 10.2 % (2-12); NEUTROPHILS # (AUTO) 3.1 X10'3 (1.8-7.7); NEUTROPHILS % (AUTO) 54.7 % (42-75); PLATELET COUNT 217 X10'3 (140-440); RED BLOOD COUNT 4.37 X10'6 (4.70-6.10); RED CELL DISTRIBUTION WIDTH 14.8 % (11.5-14.5); WHITE BLOOD COUNT 5.7 X10'3 (4.5-11.0)
[2021-04-06 18:00] VITALS: BP 132/78
--- NOTE | 2021-04-06 18:30 | NUR ---
Patient in room ORTHO 4023. I have received report from Cirilo ROWLAND and had the opportunity to ask questions and assume patient care.
--- NOTE | 2021-04-06 19:45 | NUR ---
[facility] Education was provided that the doctors have not discharged him yet due to waiting for his wound cultures that are still pending. Education about the risks and complications including possible worsening of his infection, and possible . Pt. understood and elected to still leave AMA. Hospitalist aware. IV was d/c'd, pt. escorted downstairs by staff with all of belongings.
[2021-04-06] MEDS ORDERED: acetaminophen 325mg tablet PO PRN (20:00)
== END 2021-04-06 19:25 | disposition left against medical advice (07) | DRG 507 ==
LOC: PAS IN 12:43 → EEVIPCON 15:15 → ORTHO 4S 21:20
PROVIDERS: ADMIT Orthopaedic Surgery; ATTEND Orthopaedic Surgery
PROC: 3E0U029 Introduction of Other Anti-infective into Joints, Open Approach (ICD-10-PCS; 2021-04-04)
PROC: 0R9L0ZZ Drainage of Right Elbow Joint, Open Approach (ICD-10-PCS; principal; 2021-04-04 19:18)
DX: M00.9 Pyogenic arthritis, unspecified (principal); L03.113 Cellulitis of right upper limb; Z59.0 Homelessness; F19.10 Other psychoactive substance abuse, uncomplicated; Z20.822 Contact with and (suspected) exposure to COVID-19; Z53.29 Procedure and treatment not carried out because of patient's decision for other reasons
CPT/HCPCS: 36415; 82948; 85025; 87070; 87075; 87077; 87081; 87186; 87635; A4215; A4618; A6449; A7000; C1713; G0378; J0690; J1170; J2175; J2250; J2270; J2704; J3010; J3260; J3370; J3480; J7040; J7120; Q0177

== ENCOUNTER 2021-04-11 13:40 | Emergency (ER) | payer MEDICAID, OTHER ==
[~2021-04-11] VITALS: Ht 175.3 cm; Wt 75.0 kg
[~2021-04-11 13:40] MED LIST changes: -cefazolin/dext.iso 2gm/100ml IV ONE; -famotidine 20mg tablet PO ONE; -ringers solution, lacted 1,000 ML IV SCH; -vancomycin 1,500 MG in NS 300ml IV soln IV ONE
[2021-04-11] MEDS ORDERED: vancomycin/NS 1 GM ADD-VANTAGE 250 ML IV ONE (14:10)
[2021-04-11] MEDS ORDERED: piperacillin/tazo 3.375gm/50ml 50 ML IV ONE (14:10)
[2021-04-11] MEDS ORDERED: normal saline 1000ML IV soln IV ONE (14:10)
[2021-04-11 14:43] LABS: ABG BASE EXCESS -1.6 mmol/L (-2.0-2.0); ABG HCO3 22.5 mmol/L (22.0-26.0); ABG OXYGEN SATURATION 97.1 % (94-97); ABG PCO2 (T) 35.9 mmHg (35.0-48.0); ABG PO2 (T) 98.4 mmHg (75.0-100.0); ALLEN'S TEST POSITIVE; FCOHb 0.6 % (0.0-3.9); FMetHb 0.2 % (0.0-1.5); FO2Hb 96.3 % (94-97); TOTAL HEMOGLOBIN 12.2 G/dl (14.0-18.0)
--- NOTE | 2021-04-11 14:55 | NUR ---
pt back from ct scan.
[2021-04-11 14:58] LABS: BASOPHILS % (AUTO) 0.4 % (0-1); EOSINOPHILS # (AUTO) 0.2 X10'3 (0-0.9); EOSINOPHILS % (AUTO) 3.3 % (0-6); HEMATOCRIT 36.2 % (42.0-52.0); HEMOGLOBIN 11.9 g/dl (14.0-17.9); LYMPHOCYTES # (AUTO) 2.5 X10'3 (1.1-4.8); LYMPHOCYTES % (AUTO) 34.8 % (21-51); MEAN CORPUSCULAR HEMOGLOBIN 25.7 PG (27.0-31.0); MEAN CORPUSCULAR HGB CONC 32.9 g/dL (33.0-36.5); MEAN CORPUSCULAR VOLUME 78.4 FL (78-98); MEAN PLATELET VOLUME 6.6 FL (7.4-10.4); MONOCYTES # (AUTO) 0.7 X10'3 (0-0.9); MONOCYTES % (AUTO) 9.4 % (2-12); NEUTROPHILS # (AUTO) 3.7 X10'3 (1.8-7.7); NEUTROPHILS % (AUTO) 52.1 % (42-75); PLATELET COUNT 318 X10'3 (140-440); RED BLOOD COUNT 4.61 X10'6 (4.70-6.10); RED CELL DISTRIBUTION WIDTH 14.9 % (11.5-14.5); WHITE BLOOD COUNT 7.1 X10'3 (4.5-11.0)
--- NOTE | 2021-04-11 15:00 | NUR ---
notified dr bhakta regarding pt c/o rgt sided abd pain not sure abd pain or rgt side rib pain,pt also pointing to his umblical region.
[2021-04-11 15:02] LABS: ALANINE AMINOTRANSFERASE 95 U/L (12-78); ALBUMIN 3.3 G/DL (3.4-5.0); ALBUMIN/GLOBULIN RATIO 0.7 (1.1-1.5); ALKALINE PHOSPHATASE 80 IU/L (46-116); ANION GAP 13 (8-16); ASPARTATE AMINO TRANSFERASE 144 U/L (10-37); BILIRUBIN,TOTAL 0.2 MG/DL (0.1-1.0); BLOOD UREA NITROGEN 15 MG/DL (7-18); BUN/CREATININE RATIO 21.4 (5.4-32.0); CALCIUM 8.1 MG/DL (8.5-10.1); CHLORIDE 108 MMOL/L (99-107); GLUCOSE 98 MG/DL (70-104); POTASSIUM 3.2 MMOL/L (3.5-5.1); SODIUM 145 MMOL/L (135-145); TOTAL CARBON DIOXIDE 23.9 MMOL/L (24-32); TOTAL PROTEIN 7.9 G/DL (6.4-8.2); eGFR > 90 ML/MIN
[2021-04-11 15:14] LABS: ETHANOL 0.217 GM/DL (0.0-0.010); MAGNESIUM 2.1 MG/DL (1.5-2.4)
[2021-04-11 15:16] LABS: CREATINE KINASE 1910 U/L (39-308)
[2021-04-11] MEDS ORDERED: normal saline 1000ml 1,000 ML IV ONE (15:40)
[2021-04-11] MEDS ORDERED: bacitracin 15gm ointment TP ONE (16:35)
[2021-04-11] MEDS ORDERED: DALBAVANCIN IV ONE (17:00)
[2021-04-11] MEDS ORDERED: WATER IV ONE (17:00)
[2021-04-11] MEDS ORDERED: DEXTROSE 5% IV ONE (17:00)
--- NOTE | 2021-04-11 17:07 | NUR ---
pt med is going to be coming from [facility] .
[2021-04-11 17:08] VITALS: BP 117/65
== END 2021-04-11 19:17 ==
LOC: ER 13:40
DX: Z00.8 Encounter for other general examination (principal); F10.129 Alcohol abuse with intoxication, unspecified; M25.421 Effusion, right elbow; M00.9 Pyogenic arthritis, unspecified; F17.200 Nicotine dependence, unspecified, uncomplicated; F12.90 Cannabis use, unspecified, uncomplicated; F15.90 Other stimulant use, unspecified, uncomplicated; F11.90 Opioid use, unspecified, uncomplicated; F19.90 Other psychoactive substance use, unspecified, uncomplicated; Z72.89 Other problems related to lifestyle; Z79.899 Other long term (current) drug therapy; Y90.0 Blood alcohol level of less than 20 mg/100 ml
CPT/HCPCS: 36415; 36600; 71045; 73080; 80053; 80320; 82550; 82803; 83605; 83735; 84145; 85018; 85025; 87040; 93005; 96365; 96367; 99285; J0875; J2543; J3370; J7030; J7060

== ENCOUNTER 2021-04-17 04:40 | Emergency (ER) | payer MEDICAID ==
[~2021-04-17] VITALS: Ht 172.7 cm; Wt 71.8 kg
[2021-04-17 04:42] VITALS: BP 117/88
[2021-04-17] MEDS ORDERED: LIDOcaine 40mg/ml topical solution MM ONE (05:20)
[2021-04-17] MEDS ORDERED: gentamicin 0.1% topical ointment 15gm TP SCH (05:35)
--- NOTE | 2021-04-17 05:35 | NUR ---
LIDO APPLIED AND WATER GIVEN PER .
== END 2021-04-17 06:04 ==
LOC: ER 04:41
DX: S51.001A Unspecified open wound of right elbow, initial encounter (principal); M19.90 Unspecified osteoarthritis, unspecified site; F17.200 Nicotine dependence, unspecified, uncomplicated; F12.90 Cannabis use, unspecified, uncomplicated; F15.90 Other stimulant use, unspecified, uncomplicated; F11.90 Opioid use, unspecified, uncomplicated; F19.90 Other psychoactive substance use, unspecified, uncomplicated; Z72.89 Other problems related to lifestyle; Z86.19 Personal history of other infectious and parasitic diseases; Z79.899 Other long term (current) drug therapy; X58.XXXA Exposure to other specified factors, initial encounter; Y93.89 Activity, other specified; Y92.89 Other specified places as the place of occurrence of the external cause; Y99.8 Other external cause status
CPT/HCPCS: 97597; 99284; J2001; 99283

== ENCOUNTER 2021-04-22 13:39 | Emergency (ER) | payer MEDICAID ==
[~2021-04-22] VITALS: Ht 172.7 cm; Wt 63.6 kg
[2021-04-22 14:15] VITALS: BP 116/62
--- NOTE | 2021-04-22 14:29 | NUR ---
CHECKED PT'S O2SAT 99% RA
== END 2021-04-22 15:51 | disposition home or self-care (01) ==
LOC: ER 13:39
DX: T40.411A Poisoning by fentanyl or fentanyl analogs, accidental (unintentional), initial encounter (principal); R40.0 Somnolence; R09.02 Hypoxemia; R06.81 Apnea, not elsewhere classified; F12.90 Cannabis use, unspecified, uncomplicated; F15.90 Other stimulant use, unspecified, uncomplicated; F11.90 Opioid use, unspecified, uncomplicated; Z72.89 Other problems related to lifestyle; Z87.81 Personal history of (healed) traumatic fracture; Z86.14 Personal history of Methicillin resistant Staphylococcus aureus infection; Z79.899 Other long term (current) drug therapy; Y92.89 Other specified places as the place of occurrence of the external cause
CPT/HCPCS: 71045; 99283